=== PATIENT | male | born 1940 | race Caucasian/White ===

== ENCOUNTER 2016-12-12 01:05 | Emergency (ER) | payer OTHER ==
[~2016-12-12 01:05] MED LIST: CABERGOLINE0.5 MG PO; CENTRUM; COUMADIN6 MG PO; DOSTINEX; LEVOTHYROXINE50 MCG PO; MOBIC PO; NORCO1 TAB 10/3 PO; NORVASC PO; PREVACID PO; SIMVASTATIN40 MG; VITAMIN D50000 UNIT PO; XANAX0.5 MG; ZESTORETIC 20/11 TAB PO; ZYRTEC PO
[2016-12-12] MEDS ORDERED: KEFLEX (01:14)
[2016-12-12] MEDS ORDERED: HYDROCORTISONE10 M1 (01:15)
== END 2016-12-12 01:54 | disposition home or self-care (01) ==
LOC: SED 01:05
DX: L03.115 Cellulitis of right lower limb (principal); I10 Essential (primary) hypertension; Z79.899 Other long term (current) drug therapy
CPT/HCPCS: 99283